=== PATIENT | male | born 1995 | race Caucasian/White ===

== ENCOUNTER 2024-06-01 14:51 | Emergency (ER) | payer OTHER ==
[~2024-06-01] VITALS: Ht 180.3 cm; Wt 100.0 kg
[2024-06-01] MEDS: ACETAMINOPHEN 500 MG TAB PO ONE (17:59)
[2024-06-01 18:01] VITALS: BP 138/86; TEMP 100; O2SAT 98
== END 2024-06-01 18:04 | disposition home or self-care (01) ==
LOC: M ED 14:51
DX: J09.X2 Influenza due to identified novel influenza A virus with other respiratory manifestations (principal)